=== PATIENT | female | born 1980 | race Caucasian/White ===

== ENCOUNTER 2023-02-04 18:10 | Emergency (ER) | payer MEDICAID ==
[~2023-02-04] VITALS: Ht 154.9 cm; Wt 64.4 kg
[2023-02-04 18:27] VITALS: TEMP 98.5
[2023-02-04] MEDS ORDERED: KETOROLAC TROMETHAMINE INJ 30 MG/ML VIAL IM ONE (21:30)
[2023-02-04] MEDS ORDERED: KETOROLAC TROMETHAMINE INJ 30 MG/ML VIAL ONE (21:33)
[2023-02-04] MEDS ORDERED: CYCL10TA9 PO (22:20)
[2023-02-04] MEDS ORDERED: IBUP-1955 PO (22:20)
[2023-02-05 00:42] VITALS: BP 124/72; O2SAT 99
== END 2023-02-04 22:42 | disposition home or self-care (01) ==
LOC: ER 18:24
DX: M79.605 Pain in left leg (principal); M79.604 Pain in right leg; Z98.890 Other specified postprocedural states; Z79.899 Other long term (current) drug therapy; V89.2XXA Person injured in unspecified motor-vehicle accident, traffic, initial encounter; Y93.89 Activity, other specified; Y92.89 Other specified places as the place of occurrence of the external cause; Y99.8 Other external cause status
CPT/HCPCS: 99284; 96372; 73564 ×2; 73030; 73590; J1885